=== PATIENT | male | born 1995 | race African-American/Black ===

== ENCOUNTER 2025-01-05 11:55 | Emergency (ER) | payer OTHER ==
[~2025-01-05] VITALS: Ht 172.7 cm; Wt 68.0 kg
[2025-01-05 11:57] VITALS: O2SAT 100
[2025-01-05 12:00] VITALS: BP 110/58; PULSE 98; RESP 16; TEMP 36.7; O2SAT 99
== END 2025-01-05 14:29 | disposition home or self-care (01) ==
LOC: ER 11:55
DX: S62.300A Unspecified fracture of second metacarpal bone, right hand, initial encounter for closed fracture (principal); X58.XXXA Exposure to other specified factors, initial encounter; Y93.89 Activity, other specified; Y92.89 Other specified places as the place of occurrence of the external cause; Y99.8 Other external cause status
CPT/HCPCS: 29125; 29130; 73130; 99283